=== PATIENT | male | born 1995 | race Caucasian/White ===

== ENCOUNTER 2018-08-15 23:59 | Inpatient (IN) ==
[2018-08-16] MEDS ORDERED: Lidocaine 1%/Epinephrine 1:100,000 Inj 20 ML Vial INFILTRATN ONE (01:54)
[2018-08-16] MEDS ORDERED: Vancomycin Inj 1,500 MG in Sodium Chlor 0.9% Inj 500 ML IV.SIG ONE (01:54)
[2018-08-16] MEDS ORDERED: Bupivacaine PF 0.5% Inj 10 ML Vial INFILTRATN ONE (01:54)
[2018-08-16] MEDS ORDERED: Morphine Inj 4 MG, Morphine Inj 2 MG IV.PUSH ONE ×2 (01:58)
[2018-08-16] MEDS ORDERED: Bupivacaine 0.5% Inj 50 ML MDV Vial INFILTRATN ONE (02:15)
--- NOTE | 2018-08-16 02:22 | ED ---
HPI General Chief Complaint: Extremity Injury, Upper Stated Complaint: Skin Time Seen by Provider: 08/16/18 01:42 Source: patient Mode of arrival: ambulatory Limitations: no limitations History of Present Illness HPI narrative: 23-year-old right-hand dominant white male presents emergency department for evaluation of right hand pain and swelling after having his hand closed in a car door 2 days ago. He states that his hand was accidentally closed in a van door. He states that he had only mild discomfort initially. He did sustain a laceration. Over the last 24 hours his hand has become increasingly painful, red, swollen and now has started draining pus through the wound. He states that he had been able to move his finger but has not been able to move his finger fully due to pain. The injury occurred over the right middle finger. He denies any numbness or tingling. He states he does feel weak due to pain. He has not had a tetanus shot over 5 years. Pain is severe. He denies any fever chills. Worse with movement and palpation. Some relief with elevation. MD complaint: injury to: right Onset (ago): day(s) (2) Related Data Home Medications Medication Instructions Recorded Confirmed No Known Home Medications 08/16/18 08/16/18 Allergies Allergy/AdvReac Type Severity Reaction Status Date / Time penicillin G Allergy Severe Hives Verified 08/16/18 00:03 Review of Systems ROS: all other systems reviewed are negative PMFSH Medical History Medical History Patient denies medical problems (Acute) Surgical History Surgical History History of ear surgery (Acute) Hx of appendectomy (Acute) Social History Social History Substance History: No History of Abuse Second Hand Smoke Exposure: Yes Smoking Status: Current every day smoker Tobacco Type: Cigarettes How Often Do You Have a Drink Containing Alcohol: Monthly or less Recent Travel in [facility] within the Last 8 Weeks: No Recent Out of Country Travel within the Last 8 Weeks: No Immunization History Tetanus Immunization: <5 Years Hx Influenza Vaccine This Season: No Exam Narrative Exam Narrative: GENERAL: Well-developed, well-nourished in no apparent distress. Nontoxic appearing. HEAD: Normocephalic, atraumatic. EYES: Pupils equal round and reactive. Extraocular motions intact. No scleral icterus. No injection or drainage. ENT: Nose clear. Throat without erythema, tonsillar hypertrophy or exudate. Uvula midline. Airway patent. NECK: Trachea midline. Supple, nontender, moves head freely. No central bony tenderness or spasm. CARDIOVASCULAR: Regular rate and rhythm without murmurs, gallops, or rubs. RESPIRATORY: Clear to auscultation. Breath sounds equal bilaterally. No wheezes , rales, or rhonchi. GASTROINTESTINAL: Abdomen soft, non-tender, nondistended. No hepato-splenomegaly , or palpable masses. No guarding. EXTREMITIES: No clubbing, cyanosis. Examination of the right hand reveals a 1/ 2 cm laceration to the proximal dorsal middle finger. This is approximately 1 cm away from the MCP joint. Patient has very limited range of motion at the MCP joint due to pain. There is williams pus coming from the wound. This is been cleansed and cultured. Patient has exquisite pain to the surrounding for hand up into the finger. He has intact cap refill distally. The thumb, index, ring and little finger are unremarkable. BACK: Nontender without deformity. No flank tenderness. NEUROLOGICAL: Awake, alert and oriented x 3 .Cranial nerves grossly intact. Motor and sensory grossly within normal limits. Normal speech. Course Initial Documented Vital Signs Temperature 98.6 F 08/16/18 00:01 Pulse Rate 70 08/16/18 00:01 Respiratory Rate 18 08/16/18 00:01 Blood Pressure 102/56 L 08/16/18 00:01 Pulse Oximetry 98 08/16/18 00:01 Last Documented Vital Signs Temperature 98.6 F 08/16/18 00:01 Pulse Rate 98 H 08/16/18 02:01 Respiratory Rate 22 08/16/18 02:01 Blood Pressure 142/95 H 08/16/18 02:01 Pulse Oximetry 100 08/16/18 02:01 Medical Decision Making [facility] Narrative Medical decision making narrative: IV access is obtained. Patient was given 6 mg of morphine IV, Zofran 4 mg IV. Patient will be given 1.5 g of vancomycin IV. Wound culture has been collected and sent to the lab. Routine laboratory testings including CBC, chemistry. X-ray of the hand. Patient will also be given clindamycin 900 mg IV. I have discussed the case with Dr. Whitmore the hand surgeon engine emission technician who is agreed to see the patient. He will see the patient here in the ER. The patient has been evaluated by the hand surgeon who is going to take the patient directly to the operating room to irrigate the wound. The patient will be admitted to the [facility] service. I spoke with Dr. Lewis who is accepted the admission. Medical Screen Exam Complete: Yes Emergency Medical Condition: Yes Lab Data Result diagrams: 08/16/18 02:11 08/16/18 02:11 Lab Results 08/16/18 08/16/18 Range/Units 02:11 02:11 WBC 16.5 H (4.0-11.0) th/mm3 RBC 4.45 L (4.50-5.90) mil/mm3 Hgb 14.5 (13.0-17.0) gm/dL Hct 43.0 (39.0-51.0) % MCV 96.5 (80.0-100.0) fL MCH 32.6 (27.0-34.0) pg MCHC 33.8 (32.0-36.0) % RDW 12.9 (11.6-17.2) % Plt Count 260 (150-450) th/mm3 MPV 8.4 (7.0-11.0) fL Neut % (Auto) 75.2 H (16.0-70.0) % Lymph % (Auto) 13.2 (9.0-44.0) % [place] % (Auto) 9.3 H (0.0-8.0) % Eos % (Auto) 1.8 (0.0-4.0) % Baso % (Auto) 0.5 (0.0-2.0) % Neut # (Auto) 12.4 H (1.8-7.7) th/mm3 Lymph # (Auto) 2.2 (1.0-4.8) th/mm3 [place] # (Auto) 1.5 H (0.0-0.9) th/mm3 Eos # (Auto) 0.3 (0.0-0.4) th/mm3 Baso # (Auto) 0.1 (0.0-0.2) th/mm3 WBC Differential . Differential Comment Auto diff final Sodium 141 (136-145) meq/L Potassium 3.6 (3.5-5.1) meq/L Chloride 105 (98-107) meq/L Carbon Dioxide 29.4 (21.0-32.0) meq/L Anion Gap 7 (5-15) meq/L BUN 15 (7-18) mg/dL Creatinine 0.75 (0.60-1.30) mg/dL Estimated GFR Greater than 89 (>89) mL/min Random Glucose 106 (74-106) mg/dL Calcium 8.5 (8.5-10.1) mg/dL Discharge Plan Discharge Disposition Patient Disposition: 30 Still Patient Discharge Condition Condition: Stable Physicians Team ED Provider: Patti Diallo ED Midlevel Provider: Monster Clifton Primary Care Provider: Primary Care Daphney Guthrie Rxs /Orders / Referrals /Forms Prescriptions: No Action No Known Home Medications RF: 0 Status ED Status: With Doctor
[2018-08-16 02:33] LABS: Baso # (Auto) 0.1 th/mm3 (0.0-0.2); Baso % (Auto) 0.5 % (0.0-2.0); Eos # (Auto) 0.3 th/mm3 (0.0-0.4); Eos % (Auto) 1.8 % (0.0-4.0); Hemoglobin 14.5 gm/dL (13.0-17.0); Lymph # (Auto) 2.2 th/mm3 (1.0-4.8); Lymph % (Auto) 13.2 % (9.0-44.0); Mean Corpuscular HGB Conc 33.8 % (32.0-36.0); Mean Corpuscular Hemoglobin 32.6 pg (27.0-34.0); Mean Corpuscular Volume 96.5 fL (80.0-100.0); Mean Platelet Volume 8.4 fL (7.0-11.0); Mono # (Auto) 1.5 th/mm3 (0.0-0.9); Mono % (Auto) 9.3 % (0.0-8.0); Neut # (Auto) 12.4 th/mm3 (1.8-7.7); Neut % (Auto) 75.2 % (16.0-70.0); Platelet Count 260 th/mm3 (150-450); Red Blood Count 4.45 mil/mm3 (4.50-5.90); Red Cell Distribution Width 12.9 % (11.6-17.2); White Blood Count 16.5 th/mm3 (4.0-11.0)
[2018-08-16] MEDS ORDERED: Clindamycin/Dextrose 900 MG/50 ML IVPB IV.SIG STA (02:35)
[2018-08-16] MEDS ORDERED: Lidocaine PF 2% Inj 10 ML Ampul ONE (02:45)
[2018-08-16] MEDS ORDERED: Bupivacaine PF 0.5% Inj 30 ML Vial ONE (02:48)
[2018-08-16 02:51] LABS: Anion Gap 7 meq/L (5-15); Blood Urea Nitrogen 15 mg/dL (7-18); Calcium 8.5 mg/dL (8.5-10.1); Carbon Dioxide 29.4 meq/L (21.0-32.0); Chloride 105 meq/L (98-107); Glomerular Filtration Rate Greater Than 89 mL/min (>89); Glucose,Random 106 mg/dL (74-106); Potassium 3.6 meq/L (3.5-5.1); Sodium 141 meq/L (136-145)
[2018-08-16] MEDS ORDERED: Clindamycin 900 mg/NS Premix 900 MG/50 ML PIGGYBACK IV.SIG ONE (03:00)
[2018-08-16] MEDS ORDERED: Lidocaine PF 1% Inj 5 ML Syringe OTHER ONE (03:05)
--- NOTE | 2018-08-16 03:14 | MB ---
cc: Fredo Griffiths MD DATE: 08/16/2018 REASON FOR CONSULTATION: Right middle finger laceration with infection. HISTORY OF PRESENT ILLNESS: The patient is a 23-year-old right-hand dominant male who presented to the ED with complaints of laceration to the right middle finger. The patient states his middle finger got injured by a closed car door 2 days ago. The patient noticed swelling, redness, which has been worsening. The patient also complains of throbbing pain in dependent position of the hand. He also complains of tingling in the dependent position of the hand. Denies any fever. The patient has worsening pain with range of motion of the finger. The patient also complains of limited range of motion of the right middle finger. PHYSICAL EXAMINATION: The patient is alert, oriented x3. Examination of right hand reveals a transverse laceration over the dorsal aspect of the middle finger proximal phalanx region distal to the DIP joint measuring about 2 cm. Swelling noted over the dorsal aspect of the hand and the fingers. Surrounding erythema noted. Drainage of purulent material noted from the region. Mild drooping of the middle finger noted of the MP and the PIP joints. The patient has limited range of motion. Range of motion of the middle finger is associated with pain. He is unable to make a fist. He has intact sensation distally. He has intact distal capillary refill. X-rays of the right hand shows no evidence of bony injury. ASSESSMENT: A 23-year-old male with open laceration of the right middle finger with questionable involvement of the extensor tendon with infection and cellulitis. PLAN: I agreed to take the patient emergently for exploration, wash, incision and drainage and possible repair of the extensor tendon of right middle finger. The patient has been explained the risks and benefits of the procedure. He has been consented for the same. He will be admitted for IV antibiotics. Fredo Griffiths MD SE/kunal , 02:48 AM , 02:55 AM CHIQUI
[2018-08-16] MEDS ORDERED: Ketorolac Inj 30 MG/ML (IVP) Vial IV.PUSH ONE (04:00)
[2018-08-16] MEDS ORDERED: Neostigmine Inj 5 MG/5 ML Syringe IV.PUSH ONE (04:00)
[2018-08-16] MEDS ORDERED: Glycopyrrolate Inj 1 MG/5 ML Syringe IV.PUSH ONE (04:00)
[2018-08-16] MEDS ORDERED: Vancomycin Consult Pharmacy OTHER PRN (04:18)
--- NOTE | 2018-08-16 04:18 | P.OP ---
- Preoperative Diagnosis (1) Laceration of right middle finger with tendon involvement (2) Superficial injury of right middle finger with infection - Postoperative Diagnosis (1) Septic arthritis of hand, left Comment: septic arthritis metacarpophalangeal joint right middle finger (2) Laceration of right middle finger with tendon involvement Comment: partial laceration extensor digitorum comminus tendon right middle finger Date of procedure: 08/16/18 Procedure: exploration, Incision and drainage, debridement of the extensor tendon, arthrotomy Metacarpophalangeal joint right middle finger Anesthesia: GETA Surgeon: Fredo Griffiths MD Estimated blood loss (mL): 5 Tourniquet time (min): 42 Pathology: other (swab from subcutaneous location and MP joint right middle finger)
[2018-08-16] MEDS ORDERED: Morphine Inj 4 MG/ML Vial IV.PUSH PRN (04:19)
[2018-08-16] MEDS ORDERED: Acetaminophen 325 MG Tablet PO PRN (04:19)
[2018-08-16] MEDS ORDERED: Bisacodyl 10 MG Supp RECTAL PRN (04:19)
[2018-08-16] MEDS ORDERED: *Meperidine Inj 25 MG/ML Vial PERIprocedural Use ONLY ONE (04:22)
[2018-08-16] MEDS ORDERED: fentaNYL Citrate Inj 100 MCG/2 ML Ampul ONE (04:29)
--- NOTE | 2018-08-16 05:09 | MP ---
cc: Fredo Griffiths MD DATE OF OPERATION: 08/16/2018 PREOPERATIVE DIAGNOSIS: Laceration with infection and extensor tendon involvement, right middle finger dorsum. POSTOPERATIVE DIAGNOSIS: Laceration with partial laceration of the extensor digitorum communis tendon, right middle finger with septic arthritis, right middle finger metacarpophalangeal joint. PROCEDURE: Exploration, incision, drainage and debridement, extensor digitorum communis tendon and arthrotomy metacarpophalangeal joint, right middle finger. SURGEON: Fredo Griffiths MD ANESTHESIA: General. ESTIMATED BLOOD LOSS: 5 mL. TOURNIQUET TIME: 42 minutes at 250 mmHg. SPECIMENS: Sent for culture and sensitivity. The first one was from subcutaneous location. Second one was from MP joint, right middle finger. CONDITION: To PACU stable. INDICATIONS: The patient is a 23-year-old male who presented with complaints of laceration to the right middle finger about 2 days ago when he slammed against a car door. The patient noticed worsening pain, swelling, redness, and drainage from the region and presented to the ED with inability to move the right middle finger. On examination, he had a laceration over the dorsal aspect of the middle finger proximal phalanx region just distal to the MP joint region with purulent drainage from the region with exposed tendon. He had tenderness over the MP joint of the middle finger. Range of motion of the middle finger was limited and painful. He had x-rays done, which was negative for fracture. The patient had lab work done. He had a white count of 16.5 and shift of 75%. The patient was consented for exploration, incision, drainage, possible extensor tendon repair, right middle finger. The patient was explained the risks and benefits of the procedure. PROCEDURE IN DETAIL: The patient was brought to the operating room under general anesthesia. The right upper extremity was sterilely prepped and draped. The laceration site was explored and there was evidence of purulent material from the region. Hence, decision was made to extend the laceration both proximally and distally. Incision sites were marked in a longitudinal fashion. After limb elevation, tourniquet was inflated to 250 mmHg. Incision was then made over the proposed incision site. Skin flaps were elevated. There was extensive inflammatory tissue in the subcutaneous location. On further exploration, there was evidence of partial laceration of the extensor tendon over the dorsal radial aspect of the middle finger distal to the MP joint. There was evidence of purulent material draining from underneath the extensor tendon. This purulence increased on pressure over the MP joint, hence intraoperatively, decision was made to proceed with arthrotomy of the metacarpophalangeal joint. Longitudinal arthrotomy was then carried out along the radial aspect of the MP joint. On exploration, there was evidence of purulent material within the MP joint of the right middle finger and this was connecting to the laceration underneath the extensor tendon distally. Excisional debridement of devitalized extensor tendon and inflammatory and infected tissues were carried out. Thorough wash was given using normal saline and hydrogen peroxide. This was then followed by normal saline mixed with G.U. irrigant. About 2 liters of solution was used to clean the MP joint and the surrounding infected areas. Packing of the MP joint was carried out with 1/4-inch iodoform packing material. The subcutaneous location was also packed with 1/4-inch iodoform packing material. Bleeding points were cauterized with bipolar cautery. Skin flaps were then approximated using 5-0 nylon in a horizontal mattress interrupted fashion loosely. Bulky hand dressing was applied, which was held in place by a standard wrap. Tourniquet was deflated at 42 minutes. He had good distal circulation after release of the tourniquet. The patient was recovered and sent to recovery in stable condition. We will keep the limb elevated, continue with IV antibiotics. We will obtain infectious disease consult in the hand. Fredo Griffiths MD SE/kunal , 04:23 AM , 04:34 AM
[2018-08-16] MEDS ORDERED: *morphine SULFATE 4 MG/ML PERIprocedure ONLY ONE (05:11)
--- NOTE | 2018-08-16 05:47 | XR ---
EXAM DATE: 08/16/2018 2:39 AM EDT AGE/SEX: 23 years / Male INDICATIONS: Right hand injury. Slammed in car door. Pain at 3rd digit. CLINICAL DATA: This is the patient's initial encounter. Patient reports that signs and symptoms have been present for 3 days and indicates a pain score of 9/10. MEDICAL/SURGICAL HISTORY: None. None. COMPARISON: No prior exams available for comparison. FINDINGS: The lateral view is underpenetrated. There does appear to be some dorsal soft tissue swelling. The un derlying bony elements are grossly intact without definite evidence of fracture or dislocation. No ra diodense foreign body is appreciated. CONCLUSION: No acute bony findings Electronically signed by: Maurice Lester MD 08/16/2018 5:45 AM EDT
[2018-08-16] MEDS: Senna/Docusate Sodium 8.6/50 MG Tablet PO SCH ×2 (08:53→20:18)
--- NOTE | 2018-08-16 09:51 | P.HPIM ---
History of Present Illness Service: [facility] Primary Care Physician: No Primary Care Physician Chief Complaint: RIGHT HAND INJURY History of Present Illness: Patient is a 23-year-old male who presented to the emergency department for evaluation of right hand pain and swelling after having his hand closed in a car door 2 days prior. Patient states that his hand was accidentally closed in a van door. He states that he had only mild discomfort initially. He did sustain a laceration. Has continued to worsen over last 24- 48 hours and become increasingly painful, red, swollen and has had now started draining pus through the wound. He states that he is been able to move his finger but not been able to move his feet fully now due to pain. Injury occurred over the right middle finger. He denies any numbness or tingling. Has some weakness due to pain. Had a tetanus shot over 5 years ago pain was severe. Denies any fever chills. It is worse with movement and palpable patient some relief with elevation. Patient is right hand dominant Patient underwent exploration and incision and drainage and debridement of the extensor tendon arthrotomy and metacarpal phalangeal joint of the right middle finger by Dr. DAWN We have been asked to admit. Family history is significant for hypertension in his father Inpatient Certification: I certify that the inpatient services were ordered in accordance with Medicare regulations governing the order. This includes certification that hospital inpatient services are reasonable and necessary and in the case of services not specified as inpatient-only under 42 CFR 419.22(n), that they are appropriately provided as inpatient services in accordance to with the 2-midnight benchmark under 43 CFR 412.3(e) Estimated Total Length of Stay (Days): 3 Plans for Post Hospital Care: Not yet determined Review of Systems All other systems reviewed negative except as stated in HPI [facility] - History History Provided By: Patient - Medical History Medical History: Medical History (Last Reviewed 08/16/18 @ 09:09 by Malgorzata Almendarez) Patient denies medical problems - Surgical History Surgical History: Surgical History (Last Reviewed 08/16/18 @ 09:09 by Malgorzata Almendarez) History of ear surgery Hx of appendectomy - Family History Family History: Family History (Last Updated 08/16/18 @ 09:46 by Damion Hartmann DO) Other Family history of hypertension - Social History I have reviewed the patient's Social History: Yes - Tobacco History Second Hand Smoke Exposure: Yes Tobacco Use In Past 30 Days: Yes Smoking Status: Current every day smoker Tobacco Type: Cigarettes - Alcohol History How Often Do You Have a Drink Containing Alcohol: 2 to 4 times a month - Substance Use History Substance History: No History of Abuse - Travel History History of Recent Travel: No Recent Travel in the [place] Within the Last 8 Weeks: No Recent Travel Out of the Country Within the Last 8 Weeks: No - Immunization History Tetanus Immunization: <5 Years Hx Influenza Vaccine This Season: No Medications and Allergies Active Medications: Active Medications Acetaminophen (Tylenol) 650 mg PO Q4H PRN PRN Reason: Temp > 100.4 Al Hydroxide/Mg Hydroxide (Milk Of Magnesia Liq) 30 ml PO Q12H PRN PRN Reason: Mild Constipation Bisacodyl (Dulcolax Supp) 10 mg RECTAL DAILY PRN PRN Reason: SEVERE CONSITIPATION Clindamycin/Sodium Chloride (Cleocin 900 Mg/Ns Premix) 900 mg in 50 mls @ 100 mls/hr IV.SIG Q8H BECCA Lactulose (Lactulose Liq) 30 ml PO DAILY PRN PRN Reason: SEVERE CONSITIPATION Miscellaneous Information ([facility] Nursing Information) 1 each OTHER UNSCH PRN PRN Reason: SEE LABEL COMMENTS Stop: 08/17/18 04:29 Morphine Sulfate (Morphine Inj) 4 mg IV.PUSH Q4H PRN PRN Reason: pain 6-10 Ondansetron HCl (Zofran Inj) 4 mg IV.PUSH Q6H PRN PRN Reason: NAUSEA OR VOMITING Pharmacy Profile Note (Vancomycin Consult Pharmacy) 1 each OTHER UNSCH PRN PRN Reason: Pharmacy to dose Senna/Docusate Sodium (Karmen-Colace) 1 tab PO BID BECCA Last Admin: 08/16/18 08:53 Dose: Not Given Sennosides (Senokot) 17.2 mg PO Q12H PRN PRN Reason: Moderate Constipation Allergies Allergy/AdvReac Type Severity Reaction Status Date / Time penicillin G Allergy Severe Hives Verified 08/16/18 00:03 Home Medications Medication Instructions Recorded Confirmed Type No Known Home Medications 08/16/18 08/16/18 History Exam Vital signs: Vital Signs 08/16/18 00:01 08/16/18 02:01 08/16/18 04:21 Temperature 98.6 F 98.5 F Pulse Rate 70 98 H 101 H Respiratory Rate 18 22 24 Blood Pressure 102/56 L 142/95 H 145/85 H Pulse Oximetry 98 100 99 08/16/18 04:30 08/16/18 04:45 08/16/18 05:00 Temperature Pulse Rate 74 69 70 Respiratory Rate 15 20 22 Blood Pressure 140/88 131/80 126/72 Pulse Oximetry 99 99 99 08/16/18 05:15 08/16/18 05:30 08/16/18 06:00 Temperature 98.6 F 98.2 F Pulse Rate 96 H 102 H 92 H Respiratory Rate 23 20 16 Blood Pressure 124/67 125/61 131/68 Pulse Oximetry 94 L 94 L 96 08/16/18 08:46 Temperature 97.9 F Pulse Rate 71 Respiratory Rate 17 Blood Pressure 109/65 Pulse Oximetry 97 Intake & Output 08/15/18 08/16/18 08/16/18 18:59 06:59 18:59 Intake Total 1465 / 1465 Output Total / Balance 1460 / 1460 Weight 81 kg Intake: IV 565 / 565 Cleocin 900 mg/NS Premix 900 mg 50 / 50 In 50 ml @ 100 mls/hr IV.SIG ONCE ONE Rx#:[id number] Vancomycin Inj 1,500 MG In NS 515 / 515 Inj 500 ML @ 250 mls/hr IV.SIG ONCE ONE Rx#:[id number] Anesthesia Amount 900 / 900 Output: Estimated Blood Loss 5 / 5 Narrative: GENERAL: Awake alert and oriented 3 talkative and cooperative SKIN: Warm and dry. Right hand is dressed and elevated HEAD: Atraumatic. Normocephalic. EYES: Pupils equal and round. No scleral icterus. No injection or drainage. ENT: No nasal bleeding or discharge. Mucous membranes pink and moist. NECK: Trachea midline. No JVD. CARDIOVASCULAR: Regular rate and rhythm. S1-S2 no S3 or S4 RESPIRATORY: No accessory muscle use. Clear to auscultation. Breath sounds equal bilaterally. GASTROINTESTINAL: Abdomen soft, non-tender, nondistended. Hepatic and splenic margins not palpable. MUSCULOSKELETAL: Extremities without clubbing, cyanosis, or edema. No obvious deformities. Right hand is dressed and elevated NEUROLOGICAL: Awake and alert. No obvious cranial nerve deficits. Motor grossly within normal limits. Five out of 5 muscle strength in the arms and legs. Normal speech. Right hand is dressed and elevated PSYCHIATRIC: Appropriate mood and affect; insight and judgment normal. Results - Labs CBC & Chem 7: 08/16/18 02:11 08/16/18 02:11 Labs: Short CBC 08/16/18 Range/Units 02:11 WBC 16.5 H (4.0-11.0) th/mm3 Hgb 14.5 (13.0-17.0) gm/dL Hct 43.0 (39.0-51.0) % Plt Count 260 (150-450) th/mm3 BMP 08/16/18 02:11 Sodium 141 Potassium 3.6 Chloride 105 Carbon Dioxide 29.4 BUN 15 Creatinine 0.75 Calcium 8.5 - Imaging Impressions Hand X-Ray 08/16/18 01:59 CONCLUSION: No acute bony findings Caprini VTE Risk Assessment Caprini VTE Risk Assessment: No/Low Risk (score <= 1) Caprini Risk Assessment Model: Point Value = 1 Point Value = 2 Point Value = 3 Point Value = 5 Age 41-60 Minor surgery BMI > 25 kg/m2 Swollen legs Varicose veins or History of unexplained or recurrent spontaneous Oral contraceptives or hormone replacement Sepsis (< 1 month) Serious lung disease, including pneumonia (< 1 month) Abnormal pulmonary function Acute myocardial infarction Congestive heart failure (< 1 month) History of inflammatory bowel disease Medical patient at bed rest Age 61-74 Arthroscopic surgery Major open surgery (> 45 min) Laparoscopic surgery (> 45 min) Malignancy Confined to bed (> 72 hours) Immobilizing plaster cast Central venous access Age >= 75 History of VTE Family history of VTE Factor V Leiden Prothrombin [id number] Lupus anticoagulant Anticardiolipin antibodies Elevated serum homocysteine Heparin-induced thrombocytopenia Other congenital or acquired thrombophilia Stroke (< 1 month) Elective arthroplasty Hip, pelvis, or leg fracture Acute spinal cord injury (< 1 month) Prophylaxis Regimen: Total Risk Factor Score Risk Level Prophylaxis Regimen 0-1 Low Early ambulation 2 Moderate Order ONE of the following: *Sequential Compression Device (SCD) *Heparin 5000 units SQ BID 3-4 Higher Order ONE of the following medications: *Heparin 5000 units SQ TID *Enoxaparin/Lovenox 40 mg SQ daily (WT < 150 kg, CrCl > 30 mL/min) *Enoxaparin/Lovenox 30 mg SQ daily (WT < 150 kg, CrCl > 10-29 mL/min) *Enoxaparin/Lovenox 30 mg SQ BID (WT < 150 kg, CrCl > 30 mL/min) AND/OR *Sequential Compression Device (SCD) 5 or more Highest Order ONE of the following medications: *Heparin 5000 units SQ TID (Preferred with Epidurals) *Enoxaparin/Lovenox 40 mg SQ daily (WT < 150 kg, CrCl > 30 mL/min) *Enoxaparin/Lovenox 30 mg SQ daily (WT < 150 kg, CrCl > 10-29 mL/min) *Enoxaparin/Lovenox 30 mg SQ BID (WT < 150 kg, CrCl > 30 mL/min) AND *Sequential Compression Device (SCD) Assessment and Plan - Plan Right middle finger laceration/infection -Status post incision and drainage and septic arthritis of metacarpophalangeal joint right middle finger and partial laceration extensor digitorum communis tendon right middle finger status post exploration and incision and drainage and debridement of the extensor tendon and arthrotomy of the metacarpal phalangeal joint right middle finger SEEN BY DR DAWN Continue pain control as needed Leukocytosis continue on clindamycin and vancomycin Check a.m. labs Tobacco abuse recommend smoking cessation Alcohol use recommend alcohol cessation Continue on DVT and GI prophylaxis Discussed with patient and RN and family Code Status: Full code Discussed Condition With: RN and patient and family Discharge Planning: Pending clearance by hand surgery H&P: Quality - VTE Deep Vein Thrombosis/Pulmonary Embolism Present on Admission: No
[2018-08-16] MEDS ORDERED: Morphine Sulfate Inj 2 MG/ML Vial IV.PUSH PRN (09:52)
[2018-08-16] MEDS ORDERED: Naloxone Inj 0.4 MG/ML Vial IV.PUSH PRN (09:52)
[2018-08-16] MEDS: Famotidine 20 MG Tablet PO SCH ×2 (11:15→20:18)
[2018-08-16] MEDS: Clindamycin 900 mg/NS Premix 900 MG/50 ML PIGGYBACK IV.SIG SCH ×2 (11:15→18:30)
[2018-08-16] MEDS: Vancomycin Inj 1,500 MG in Sodium Chlor 0.9% Inj 500 ML IV.SIG SCH (14:22)
--- NOTE | 2018-08-16 16:19 | P.PN ---
Subjective Interval history: pain is better no numbness no fever complaint with limb elevation Physical Exam Vital signs: Vital Signs 08/16/18 00:01 08/16/18 02:01 08/16/18 04:21 Temperature 98.6 F 98.5 F Pulse Rate 70 98 H 101 H Respiratory Rate 18 22 24 Blood Pressure 102/56 L 142/95 H 145/85 H Pulse Oximetry 98 100 99 08/16/18 04:30 08/16/18 04:45 08/16/18 05:00 Temperature Pulse Rate 74 69 70 Respiratory Rate 15 20 22 Blood Pressure 140/88 131/80 126/72 Pulse Oximetry 99 99 99 08/16/18 05:15 08/16/18 05:30 08/16/18 06:00 Temperature 98.6 F 98.2 F Pulse Rate 96 H 102 H 92 H Respiratory Rate 23 20 16 Blood Pressure 124/67 125/61 131/68 Pulse Oximetry 94 L 94 L 96 08/16/18 08:46 08/16/18 11:26 08/16/18 15:17 Temperature 97.9 F 98 F 98.1 F Pulse Rate 71 71 76 Respiratory Rate 17 17 16 Blood Pressure 109/65 109/62 116/67 Pulse Oximetry 97 97 98 Intake & Output 08/15/18 08/16/18 08/16/18 18:59 06:59 18:59 Intake Total 1465 / 1465 50 / 50 Output Total 5 / 5 Balance 1460 / 1460 50 / 50 Weight 81 kg Intake: IV 565 / 565 50 / 50 Cleocin 900 mg/NS Premix 900 mg 50 / 50 50 / 50 In 50 ml @ 100 mls/hr IV.SIG Q8H [facility] Rx#:[id number] Vancomycin Inj 1,500 MG In NS 515 / 515 Inj 500 ML @ 250 mls/hr IV.SIG ONCE ONE Rx#:[id number] Anesthesia Amount 900 / 900 Output: Estimated Blood Loss 5 / 5 Narrative: examination of the right upper extremity: dressing and packing in place decreased swelling and erythema able to move his fingers better, dropping of the middle finger noted intact sensation intact distal circulation Results - Labs CBC & Chem 7: 08/16/18 02:11 08/16/18 02:11 Laboratory Results - last 24 hr 08/16/18 08/16/18 02:11 02:11 WBC 16.5 H RBC 4.45 L Hgb 14.5 Hct 43.0 MCV 96.5 MCH 32.6 MCHC 33.8 RDW 12.9 Plt Count 260 MPV 8.4 Neut % (Auto) 75.2 H Lymph % (Auto) 13.2 [place] % (Auto) 9.3 H Eos % (Auto) 1.8 Baso % (Auto) 0.5 Neut # (Auto) 12.4 H Lymph # (Auto) 2.2 [place] # (Auto) 1.5 H Eos # (Auto) 0.3 Baso # (Auto) 0.1 WBC Differential . Differential Comment Auto diff final Sodium 141 Potassium 3.6 Chloride 105 Carbon Dioxide 29.4 Anion Gap 7 BUN 15 Creatinine 0.75 Estimated GFR Greater than 89 Random Glucose 106 Calcium 8.5 Microbiology 08/16/18 03:40 Wound - Finger Fungal Smear - Final No fungal elements seen 08/16/18 03:26 Wound - Finger Fungal Smear - Final No fungal elements seen 08/16/18 03:40 Wound - Finger Gram Stain - Final 08/16/18 03:26 Wound - Finger Gram Stain - Final 08/16/18 02:11 Wound - Finger Gram Stain - Final - Imaging Impressions Hand X-Ray 08/16/18 01:59 CONCLUSION: No acute bony findings Assessment and Plan - Assessment (1) Septic arthritis of hand, left Code(s): M00.9 - Pyogenic arthritis, unspecified Status: Acute - Plan surrounding skin is cleaned with alcohol wipes packing pulled couple of cms dry dressing applied continue with limb elevation and range of motion exercises continue with iv antibiotics ID consultation labs in am. hand surgery will follow.
[2018-08-16] MEDS: Heparin - SQ 10,000 UNITS/ML Vial SQ SCH (20:18)
[2018-08-17] MEDS: Vancomycin Inj 1,500 MG in Sodium Chlor 0.9% Inj 500 ML IV.SIG SCH ×2 (03:43→15:06)
[2018-08-17] MEDS: Clindamycin 900 mg/NS Premix 900 MG/50 ML PIGGYBACK IV.SIG SCH ×3 (03:43→17:37)
[2018-08-17] MEDS: oxyCODONE/Acetaminophen 10/325 Tablet PO PRN ×3 (05:50→17:35)
[2018-08-17 06:53] LABS: Anion Gap 7 meq/L (5-15); Blood Urea Nitrogen 13 mg/dL (7-18); Calcium 8.3 mg/dL (8.5-10.1); Carbon Dioxide 28.2 meq/L (21.0-32.0); Chloride 108 meq/L (98-107); Glomerular Filtration Rate Greater Than 89 mL/min (>89); Glucose,Random 87 mg/dL (74-106); Sodium 143 meq/L (136-145)
[2018-08-17 07:02] LABS: Thyroid Stimulating Hormone 0.392 uIU/mL (0.358-3.740)
[2018-08-17] MEDS: Famotidine 20 MG Tablet PO SCH (08:52)
[2018-08-17] MEDS: Heparin - SQ 10,000 UNITS/ML Vial SQ SCH (08:52)
[2018-08-17] MEDS: Senna/Docusate Sodium 8.6/50 MG Tablet PO SCH (08:59)
[2018-08-17 09:54] LABS: Baso # (Auto) 0.1 th/mm3 (0.0-0.2); Baso % (Auto) 0.5 % (0.0-2.0); Eos # (Auto) 0.1 th/mm3 (0.0-0.4); Eos % (Auto) 1.1 % (0.0-4.0); Hematocrit 37.4 % (39.0-51.0); Hemoglobin 12.6 gm/dL (13.0-17.0); Lymph # (Auto) 3.1 th/mm3 (1.0-4.8); Lymph % (Auto) 26.8 % (9.0-44.0); Mean Corpuscular HGB Conc 33.7 % (32.0-36.0); Mean Corpuscular Hemoglobin 32.6 pg (27.0-34.0); Mean Corpuscular Volume 96.9 fL (80.0-100.0); Mean Platelet Volume 8.4 fL (7.0-11.0); Mono % (Auto) 8.2 % (0.0-8.0); Neut # (Auto) 7.4 th/mm3 (1.8-7.7); Neut % (Auto) 63.4 % (16.0-70.0); Platelet Count 210 th/mm3 (150-450); Red Blood Count 3.86 mil/mm3 (4.50-5.90); Red Cell Distribution Width 12.9 % (11.6-17.2); White Blood Count 11.7 th/mm3 (4.0-11.0)
[2018-08-17 13:14] LABS: Hemoglobin A1c 5.3 % (4.3-6.0)
[2018-08-17] MEDS ORDERED: Pharmacy Ordered Lab Info OTHER ONE (13:45)
[2018-08-17 15:10] LABS: Alanine Aminotransferase 15 U/L (12-78); Anion Gap 5 meq/L (5-15); Aspartate Aminotransferase 8 U/L (15-37); Blood Urea Nitrogen 12 mg/dL (7-18); Calcium 7.9 mg/dL (8.5-10.1); Chloride 107 meq/L (98-107); Glomerular Filtration Rate Greater Than 89 mL/min (>89); Glucose,Random 111 mg/dL (74-106); Potassium 3.5 meq/L (3.5-5.1); Sodium 141 meq/L (136-145)
[2018-08-17 15:13] LABS: Alkaline Phosphatase 71 U/L (45-117); Total Protein 6.5 g/dL (6.4-8.2); Vancomycin,Trough 12.3 mcg/mL (5.0-10.0)
--- NOTE | 2018-08-17 16:04 | P.CONID ---
History of Present Illness Service: ID Consult date: 08/17/18 Requesting Physician: Damion Hartmann Reason for Consult: RIGHT HAND INFECTION Primary Care Provider: No Primary Care Physician Chief Complaint: RIGHT HAND INJURY History of Present Illness: 23 yo male w/o significant past med history slammed his R hand into car door about 1 week ago and 3 days ago developped swelling, pain, redness in the hand with swelling and redness going up his arm denies fever, chills no other symptoms s/p exploration, Incision and drainage, debridement of the extensor tendon, arthrotomy Metacarpophalangeal joint right middle finger on 08/16/[address] Alexander Growing GAS 3/3 cultures Allergic to PCN: states severe allergy, "I cant' take it" Cant recall if ever took Keflex Pt is on clindamycin and Vancomycin and his pain much improved Review of Systems All other systems reviewed negative except as stated in HPI PMFSH - History History Provided By: Patient - Medical History Medical History: Medical History (Last Reviewed 08/17/18 @ 19:30 by Brooke Pike MD) Patient denies medical problems - Surgical History Surgical History: Surgical History (Last Reviewed 08/17/18 @ 19:30 by Brooke Pike MD) History of ear surgery Hx of appendectomy - Family History Family History: Family History (Last Reviewed 08/17/18 @ 19:30 by Brooke Pike MD) Other Family history of hypertension - Social History I have reviewed the patient's Social History: Yes - Tobacco History Second Hand Smoke Exposure: Yes Tobacco Use In Past 30 Days: Yes Smoking Status: Current every day smoker Tobacco Type: Cigarettes - Alcohol History How Often Do You Have a Drink Containing Alcohol: 2 to 4 times a month - Substance Use History Substance History: No History of Abuse - Travel History History of Recent Travel: No Recent Travel in the [place] Within the Last 8 Weeks: No Recent Travel Out of the Country Within the Last 8 Weeks: No - Immunization History Tetanus Immunization: <5 Years Hx Influenza Vaccine This Season: No Medications and Allergies Active Medications: Active Medications Acetaminophen (Tylenol) 650 mg PO Q4H PRN PRN Reason: Temp > 100.4 Al Hydroxide/Mg Hydroxide (Milk Of Magnesia Liq) 30 ml PO Q12H PRN PRN Reason: Mild Constipation Bisacodyl (Dulcolax Supp) 10 mg RECTAL DAILY PRN PRN Reason: SEVERE CONSITIPATION Famotidine (Pepcid) 20 mg PO BID [facility] Last Admin: 08/17/18 08:52 Dose: 20 mg Heparin Sodium (Porcine) (Heparin Inj) 5,000 units SQ Q12HR [facility] Last Admin: 08/17/18 08:52 Dose: 5,000 units Clindamycin/Sodium Chloride (Cleocin 900 Mg/Ns Premix) 900 mg in 50 mls @ 100 mls/hr IV.SIG Q8H [facility] Last Infusion: 08/17/18 13:35 Dose: Infused Vancomycin HCl 1,500 mg/ (Sodium Chloride) 515 mls @ 250 mls/hr IV.SIG Q12H [facility] Last Admin: 08/17/18 15:06 Dose: 125 mls/hr Lactulose (Lactulose Liq) 30 ml PO DAILY PRN PRN Reason: SEVERE CONSITIPATION Morphine Sulfate (Morphine Inj) 4 mg IV.PUSH Q4H PRN PRN Reason: pain 6-10 Morphine Sulfate (Morphine Inj) 2 mg IV.PUSH Q3H PRN PRN Reason: PAIN 3-5; IF UABLE TO TAKE PO Naloxone HCl (Narcan Inj) 0.4 mg IV.PUSH UNSCH PRN PRN Reason: SEE LABEL COMMENTS Ondansetron HCl (Zofran Inj) 4 mg IV.PUSH Q6H PRN PRN Reason: NAUSEA OR VOMITING Oxycodone/Acetaminophen (Percocet 10/325 Mg) 1 tab PO Q6H PRN PRN Reason: PAIN SCALE 6 TO 10 Last Admin: 08/17/18 12:14 Dose: 1 tab Oxycodone/Acetaminophen (Percocet 5/325 Mg) 1 tab PO Q6H PRN PRN Reason: PAIN SCALE 3 TO 5 Last Admin: 08/16/18 20:17 Dose: 1 tab Pharmacy Profile Note (Vancomycin Consult Pharmacy) 1 each OTHER UNSCH PRN PRN Reason: Pharmacy to dose Senna/Docusate Sodium (Karmen-Colace) 1 tab PO BID [facility] Last Admin: 08/17/18 08:59 Dose: Not Given Sennosides (Senokot) 17.2 mg PO Q12H PRN PRN Reason: Moderate Constipation Allergies Allergy/AdvReac Type Severity Reaction Status Date / Time penicillin G Allergy Severe Hives Verified 08/16/18 00:03 Home Medications Medication Instructions Recorded Confirmed Type No Known Home Medications 08/16/18 08/16/18 History Exam Vital signs: Vital Signs 08/16/18 18:33 08/16/18 19:00 08/16/18 20:50 Temperature 99.4 F 99.3 F Pulse Rate 68 Respiratory Rate 18 18 Blood Pressure 120/68 Pulse Oximetry 98 08/16/18 22:00 08/17/18 00:25 08/17/18 08:00 Temperature 98.5 F 98.1 F 97.8 F Pulse Rate 61 56 L 58 L Respiratory Rate 17 19 17 Blood Pressure 119/63 114/63 111/66 Pulse Oximetry 98 96 99 08/17/18 12:00 08/17/18 16:00 Temperature 98.2 F 98.1 F Pulse Rate 63 54 L Respiratory Rate 18 17 Blood Pressure 114/70 108/65 Pulse Oximetry 98 99 Intake & Output 08/16/18 08/17/18 08/17/18 18:59 06:59 18:59 Intake Total 1045 / 1045 1165 / 1165 50 / 50 Output Total 600 / 600 Balance 445 / 445 1165 / 1165 50 / 50 Weight 81.2 kg Intake: IV 565 / 565 615 / 615 50 / 50 Cleocin 900 mg/NS Premix 900 mg 50 / 50 100 / 100 50 / 50 In 50 ml @ 100 mls/hr IV.SIG Q8H [facility] Rx#:[id number] Vancomycin Inj 1,500 MG In NS 515 / 515 515 / 515 Inj 500 ML @ 250 mls/hr IV.SIG Q12H [facility] Rx#:[id number] Oral 480 / 480 550 / 550 Output: Urine 600 / 600 Other: # Voids 2 - Constitutional no acute distress, average body habitus - Routine HEENT Exam Head: Present: normocephalic, atraumatic Eye: Present: EOMI, PERRL. Absent: scleral injection ENT: Present: mucous membranes moist, oropharynx clear - Routine Neck Exam Present: supple. Absent: JVD - Routine Respiratory Exam Present: CTA bilaterally. Absent: accessory muscle use, rales, rhonchi - Routine Cardiovascular Exam Present: RRR, S1, S2. Absent: murmur, gallop, rubs - Routine Abdominal Exam Present: soft, normoactive bowel sounds. Absent: tenderness, distended, organomegaly, mass - Routine Extremities Exam Absent: cyanosis, clubbing, edema Comments: R hand with dressing in place no ascending cellulitis, lymphangitis - Routine Skin Exam Present: dry, warm. Absent: cyanosis, rash - Routine Neurological Exam Present: alert, oriented X3, CN II-XII intact, moving all extremities, vision grossly intact, hearing grossly intact - Routine Psychiatric Exam Present: normal affect, normal thought process, cooperative Results - Labs CBC & Chem 7: 08/17/18 09:21 08/17/18 13:46 Labs: Laboratory Results - last 24 hr 08/17/18 08/17/18 08/17/18 05:46 09:21 09:21 WBC 11.7 H RBC 3.86 L Hgb 12.6 L Hct 37.4 L MCV 96.9 MCH 32.6 MCHC 33.7 RDW 12.9 Plt Count 210 MPV 8.4 Neut % (Auto) 63.4 Lymph % (Auto) 26.8 [place] % (Auto) 8.2 H Eos % (Auto) 1.1 Baso % (Auto) 0.5 Neut # (Auto) 7.4 Lymph # (Auto) 3.1 [place] # (Auto) 1.0 H Eos # (Auto) 0.1 Baso # (Auto) 0.1 WBC Differential . Differential Comment Auto diff final Sodium 143 Potassium 4.0 Chloride 108 H Carbon Dioxide 28.2 Anion Gap 7 BUN 13 Creatinine 0.68 Estimated GFR Greater than 89 Random Glucose 87 Hemoglobin A1c 5.3 Calcium 8.3 L Phosphorus Magnesium Total Bilirubin AST ALT Alkaline Phosphatase Total Protein Albumin TSH 0.392 Free T4 1.60 H Vancomycin Trough 08/17/18 13:46 WBC RBC Hgb Hct MCV MCH MCHC RDW Plt Count MPV Neut % (Auto) Lymph % (Auto) [place] % (Auto) Eos % (Auto) Baso % (Auto) Neut # (Auto) Lymph # (Auto) [place] # (Auto) Eos # (Auto) Baso # (Auto) WBC Differential Differential Comment Sodium 141 Potassium 3.5 Chloride 107 Carbon Dioxide 29.0 Anion Gap 5 BUN 12 Creatinine 0.70 Estimated GFR Greater than 89 Random Glucose 111 H Hemoglobin A1c Calcium 7.9 L Phosphorus 3.0 Magnesium 2.0 Total Bilirubin 0.4 AST 8 L ALT 15 Alkaline Phosphatase 71 Total Protein 6.5 Albumin 3.0 L TSH Free T4 Vancomycin Trough 12.3 H Assessment and Plan - Plan R hand abscess following trauma including tenosynovits, metacarpophalangeal joint setic arthritis of right middle finger s/p exploration, Incision and drainage, debridement of the extensor tendon, arthrotomy on 08/16/[address] Alexander PCN allergy cont vanco, clindamycin I asked microlab to chk sensitivity for clindamycin of pt's GAS isolate dw pt
--- NOTE | 2018-08-17 16:41 | P.PN ---
Subjective Interval history: Ambulating in the room without any problems. Status post surgery. Says he has throbbing pain at the surgical site. Keeps arm elevated and trying to comply with stretching exercises given by Dr. Perdomo. No fever or chills. Eating well no nausea or vomiting. Physical Exam Vital signs: Vital Signs 08/16/18 18:33 08/16/18 19:00 08/16/18 20:50 Temperature 99.4 F 99.3 F Pulse Rate 68 Respiratory Rate 18 18 Blood Pressure 120/68 Pulse Oximetry 98 08/16/18 22:00 08/17/18 00:25 08/17/18 08:00 Temperature 98.5 F 98.1 F 97.8 F Pulse Rate 61 56 L 58 L Respiratory Rate 17 19 17 Blood Pressure 119/63 114/63 111/66 Pulse Oximetry 98 96 99 08/17/18 12:00 08/17/18 16:00 Temperature 98.2 F 98.1 F Pulse Rate 63 54 L Respiratory Rate 18 17 Blood Pressure 114/70 108/65 Pulse Oximetry 98 99 Intake & Output 08/16/18 08/17/18 08/17/18 18:59 06:59 18:59 Intake Total 1045 / 1045 1165 / 1165 50 / 50 Output Total 600 / 600 Balance 445 / 445 1165 / 1165 50 / 50 Weight 81.2 kg Intake: IV 565 / 565 615 / 615 50 / 50 Cleocin 900 mg/NS Premix 900 mg 50 / 50 100 / 100 50 / 50 In 50 ml @ 100 mls/hr IV.SIG Q8H [facility] Rx#:[id number] Vancomycin Inj 1,500 MG In NS 515 / 515 515 / 515 Inj 500 ML @ 250 mls/hr IV.SIG Q12H [facility] Rx#:[id number] Oral 480 / 480 550 / 550 Output: Urine 600 / 600 Other: # Voids 2 Narrative: GENERAL: Awake alert and oriented 3 talkative and cooperative SKIN: Warm and dry. Right hand is dressed and elevated CARDIOVASCULAR: Regular rate and rhythm. S1-S2 no S3 or S4 RESPIRATORY: No accessory muscle use. Clear to auscultation. Breath sounds equal bilaterally. GASTROINTESTINAL: Abdomen soft, non-tender, nondistended. Hepatic and splenic margins not palpable. MUSCULOSKELETAL: Extremities without clubbing, cyanosis, or edema. No obvious deformities. Right hand is dressed and elevated NEUROLOGICAL: Awake and alert. No obvious cranial nerve deficits. Motor grossly within normal limits. Five out of 5 muscle strength in the arms and legs. Normal speech. Right hand is dressed and elevated PSYCHIATRIC: Appropriate mood and affect; insight and judgment normal. Results - Labs CBC & Chem 7: 08/17/18 09:21 08/17/18 13:46 Laboratory Results - last 24 hr 08/17/18 08/17/18 08/17/18 05:46 09:21 09:21 WBC 11.7 H RBC 3.86 L Hgb 12.6 L Hct 37.4 L MCV 96.9 MCH 32.6 MCHC 33.7 RDW 12.9 Plt Count 210 MPV 8.4 Neut % (Auto) 63.4 Lymph % (Auto) 26.8 [place] % (Auto) 8.2 H Eos % (Auto) 1.1 Baso % (Auto) 0.5 Neut # (Auto) 7.4 Lymph # (Auto) 3.1 [place] # (Auto) 1.0 H Eos # (Auto) 0.1 Baso # (Auto) 0.1 WBC Differential . Differential Comment Auto diff final Sodium 143 Potassium 4.0 Chloride 108 H Carbon Dioxide 28.2 Anion Gap 7 BUN 13 Creatinine 0.68 Estimated GFR Greater than 89 Random Glucose 87 Hemoglobin A1c 5.3 Calcium 8.3 L Phosphorus Magnesium Total Bilirubin AST ALT Alkaline Phosphatase Total Protein Albumin TSH 0.392 Free T4 1.60 H Vancomycin Trough 08/17/18 13:46 WBC RBC Hgb Hct MCV MCH MCHC RDW Plt Count MPV Neut % (Auto) Lymph % (Auto) [place] % (Auto) Eos % (Auto) Baso % (Auto) Neut # (Auto) Lymph # (Auto) [place] # (Auto) Eos # (Auto) Baso # (Auto) WBC Differential Differential Comment Sodium 141 Potassium 3.5 Chloride 107 Carbon Dioxide 29.0 Anion Gap 5 BUN 12 Creatinine 0.70 Estimated GFR Greater than 89 Random Glucose 111 H Hemoglobin A1c Calcium 7.9 L Phosphorus 3.0 Magnesium 2.0 Total Bilirubin 0.4 AST 8 L ALT 15 Alkaline Phosphatase 71 Total Protein 6.5 Albumin 3.0 L TSH Free T4 Vancomycin Trough 12.3 H Microbiology 08/16/18 02:11 Wound - Finger Gram Stain - Final 08/16/18 02:11 Wound - Finger Wound Culture - Preliminary Group A beta Strep 08/16/18 03:40 Wound - Finger Acid Fast Bacilli Smear - Final No acid fast bacilli seen 08/16/18 03:26 Wound - Finger Acid Fast Bacilli Smear - Final No acid fast bacilli seen 08/16/18 03:40 Wound - Finger Gram Stain - Final 08/16/18 03:40 Wound - Finger Wound Culture - Preliminary Group A beta Strep 08/16/18 03:26 Wound - Finger Gram Stain - Final 08/16/18 03:26 Wound - Finger Wound Culture - Preliminary Group A beta Strep 08/16/18 02:15 Blood - Peripheral Aerobic Blood Culture - Preliminary No growth in 1 day 08/16/18 02:15 Blood - Peripheral Anaerobic Blood Culture - Preliminary No growth in 1 day 08/16/18 02:00 Blood - Peripheral Aerobic Blood Culture - Preliminary No growth in 1 day 08/16/18 02:00 Blood - Peripheral Anaerobic Blood Culture - Preliminary No growth in 1 day - Procedures s/p exploration, Incision and drainage, debridement of the extensor tendon, arthrotomy Metacarpophalangeal joint right middle finger on 08/16/[address] Alexander Assessment and Plan - Plan Right middle finger laceration/infection -Status post incision and drainage and septic arthritis of metacarpophalangeal joint right middle finger and partial laceration extensor digitorum communis tendon right middle finger status post exploration and incision and drainage and debridement of the extensor tendon and arthrotomy of the metacarpal phalangeal joint right middle finger SEEN BY DR DAWN Continue pain control as needed - s/p exploration, Incision and drainage, debridement of the extensor tendon, arthrotomy Metacarpophalangeal joint right middle finger on 08/16/[address] Alexander Leukocytosis continue on clindamycin and vancomycin Check a.m. labs Tobacco abuse recommend smoking cessation Alcohol use recommend alcohol cessation Continue on DVT and GI prophylaxis Discussed with patient and RN and family Code Status: Full code Discussed Condition With: RN and patient and family Discharge Planning: Pending clearance by hand surgery and ID
--- NOTE | 2018-08-17 17:46 | P.PN ---
Subjective Interval history: complains of mild pain no fever no numbness complaint with limb elevation Physical Exam Vital signs: Vital Signs 08/16/18 18:33 08/16/18 19:00 08/16/18 20:50 Temperature 99.4 F 99.3 F Pulse Rate 68 Respiratory Rate 18 18 Blood Pressure 120/68 Pulse Oximetry 98 08/16/18 22:00 08/17/18 00:25 08/17/18 08:00 Temperature 98.5 F 98.1 F 97.8 F Pulse Rate 61 56 L 58 L Respiratory Rate 17 19 17 Blood Pressure 119/63 114/63 111/66 Pulse Oximetry 98 96 99 08/17/18 12:00 08/17/18 16:00 Temperature 98.2 F 98.1 F Pulse Rate 63 54 L Respiratory Rate 18 17 Blood Pressure 114/70 108/65 Pulse Oximetry 98 99 Intake & Output 08/16/18 08/17/18 08/17/18 18:59 06:59 18:59 Intake Total 1045 / 1045 1165 / 1165 50 / 50 Output Total 600 / 600 Balance 445 / 445 1165 / 1165 50 / 50 Weight 81.2 kg Intake: IV 565 / 565 615 / 615 50 / 50 Cleocin 900 mg/NS Premix 900 mg 50 / 50 100 / 100 50 / 50 In 50 ml @ 100 mls/hr IV.SIG Q8H [facility] Rx#:[id number] Vancomycin Inj 1,500 MG In NS 515 / 515 515 / 515 Inj 500 ML @ 250 mls/hr IV.SIG Q12H [facility] Rx#:[id number] Oral 480 / 480 550 / 550 Output: Urine 600 / 600 Other: # Voids 2 Narrative: examination of the right hand: intact dressing and packing decreased swelling and redness packing pulled out couple of cms, minimal drainage noted range of motion of the middle finger is limited and painful wbc down to 11.7 cultures: group b strep Results - Labs CBC & Chem 7: 08/17/18 09:21 08/17/18 13:46 Laboratory Results - last 24 hr 08/17/18 08/17/18 08/17/18 05:46 09:21 09:21 WBC 11.7 H RBC 3.86 L Hgb 12.6 L Hct 37.4 L MCV 96.9 MCH 32.6 MCHC 33.7 RDW 12.9 Plt Count 210 MPV 8.4 Neut % (Auto) 63.4 Lymph % (Auto) 26.8 [place] % (Auto) 8.2 H Eos % (Auto) 1.1 Baso % (Auto) 0.5 Neut # (Auto) 7.4 Lymph # (Auto) 3.1 [place] # (Auto) 1.0 H Eos # (Auto) 0.1 Baso # (Auto) 0.1 WBC Differential . Differential Comment Auto diff final Sodium 143 Potassium 4.0 Chloride 108 H Carbon Dioxide 28.2 Anion Gap 7 BUN 13 Creatinine 0.68 Estimated GFR Greater than 89 Random Glucose 87 Hemoglobin A1c 5.3 Calcium 8.3 L Phosphorus Magnesium Total Bilirubin AST ALT Alkaline Phosphatase Total Protein Albumin TSH 0.392 Free T4 1.60 H Vancomycin Trough 08/17/18 13:46 WBC RBC Hgb Hct MCV MCH MCHC RDW Plt Count MPV Neut % (Auto) Lymph % (Auto) [place] % (Auto) Eos % (Auto) Baso % (Auto) Neut # (Auto) Lymph # (Auto) [place] # (Auto) Eos # (Auto) Baso # (Auto) WBC Differential Differential Comment Sodium 141 Potassium 3.5 Chloride 107 Carbon Dioxide 29.0 Anion Gap 5 BUN 12 Creatinine 0.70 Estimated GFR Greater than 89 Random Glucose 111 H Hemoglobin A1c Calcium 7.9 L Phosphorus 3.0 Magnesium 2.0 Total Bilirubin 0.4 AST 8 L ALT 15 Alkaline Phosphatase 71 Total Protein 6.5 Albumin 3.0 L TSH Free T4 Vancomycin Trough 12.3 H Microbiology 08/16/18 02:11 Wound - Finger Gram Stain - Final 08/16/18 02:11 Wound - Finger Wound Culture - Preliminary Group A beta Strep 08/16/18 03:40 Wound - Finger Acid Fast Bacilli Smear - Final No acid fast bacilli seen 08/16/18 03:26 Wound - Finger Acid Fast Bacilli Smear - Final No acid fast bacilli seen 08/16/18 03:40 Wound - Finger Gram Stain - Final 08/16/18 03:40 Wound - Finger Wound Culture - Preliminary Group A beta Strep 08/16/18 03:26 Wound - Finger Gram Stain - Final 08/16/18 03:26 Wound - Finger Wound Culture - Preliminary Group A beta Strep 08/16/18 02:15 Blood - Peripheral Aerobic Blood Culture - Preliminary No growth in 1 day 08/16/18 02:15 Blood - Peripheral Anaerobic Blood Culture - Preliminary No growth in 1 day 08/16/18 02:00 Blood - Peripheral Aerobic Blood Culture - Preliminary No growth in 1 day 08/16/18 02:00 Blood - Peripheral Anaerobic Blood Culture - Preliminary No growth in 1 day - Procedures s/p exploration, Incision and drainage, debridement of the extensor tendon, arthrotomy Metacarpophalangeal joint right middle finger on 08/16/[address] Alexander Assessment and Plan - Assessment (1) Septic arthritis of hand, left Code(s): M00.9 - Pyogenic arthritis, unspecified Status: Acute - Plan surrounding skin is cleaned with alcohol wipes packing pulled couple of cms dry dressing applied continue with limb elevation and range of motion exercises continue with iv antibiotics ID consultation for septic arthritis iv antibiotics hand surgery will follow.
[2018-08-18] MEDS: Clindamycin 900 mg/NS Premix 900 MG/50 ML PIGGYBACK IV.SIG SCH ×4 (02:30→18:19)
[2018-08-18] MEDS: oxyCODONE/Acetaminophen 10/325 Tablet PO PRN ×2 (04:09→16:29)
[2018-08-18] MEDS: Vancomycin Inj 1,500 MG in Sodium Chlor 0.9% Inj 500 ML IV.SIG SCH ×2 (04:12→13:11)
[2018-08-18] MEDS: Heparin - SQ 10,000 UNITS/ML Vial SQ SCH ×3 (04:13→21:27)
[2018-08-18] MEDS: Senna/Docusate Sodium 8.6/50 MG Tablet PO SCH ×3 (04:13→21:27)
[2018-08-18] MEDS: Famotidine 20 MG Tablet PO SCH ×3 (04:13→21:27)
--- NOTE | 2018-08-18 14:17 | P.PNID ---
Subjective Remarks: doing better reported to me that he had hives and throat swelling with last PCN use growing GAS in all 3 clx Antibiotics: vanco clinda Allergies/Adverse Reactions: Allergies penicillin G Allergy (Severe, Verified 08/16/18 00:03) Hives Objective Vital Signs 08/17/18 16:00 08/17/18 20:00 08/17/18 23:40 Temperature 98.1 F 98.7 F 98.4 F Pulse Rate 54 L 65 57 L Respiratory Rate 17 18 19 Blood Pressure 108/65 126/79 117/59 L Pulse Oximetry 99 98 96 08/18/18 00:00 08/18/18 03:35 08/18/18 08:00 Temperature 98.3 F Pulse Rate 59 L Respiratory Rate 16 18 18 Blood Pressure 122/63 Pulse Oximetry 98 08/18/18 12:00 Temperature 98.4 F Pulse Rate 68 Respiratory Rate 14 Blood Pressure 114/69 Pulse Oximetry 99 Intake & Output 08/17/18 08/18/18 08/18/18 18:59 06:59 18:59 Intake Total 580 / 580 1465 / 1465 565 / 565 Balance 580 / 580 1465 / 1465 565 / 565 Weight 81.2 kg Intake: IV 100 / 100 565 / 565 565 / 565 Cleocin 900 mg/NS Premix 900 mg 100 / 100 50 / 50 50 / 50 In 50 ml @ 100 mls/hr IV.SIG Q8H [facility] Rx#:[id number] Vancomycin Inj 1,500 MG In NS 515 / 515 515 / 515 Inj 500 ML @ 250 mls/hr IV.SIG Q12H [facility] Rx#:[id number] Oral 480 / 480 900 / 900 Other: # Voids 5 2 # Bowel Movements 1 08/16/18 02:11 Wound - Finger Gram Stain - Final 08/16/18 02:11 Wound - Finger Wound Culture - Preliminary Group A beta Strep 08/16/18 02:15 Blood - Peripheral Aerobic Blood Culture - Preliminary No growth in 2 days 08/16/18 02:15 Blood - Peripheral Anaerobic Blood Culture - Preliminary No growth in 2 days 08/16/18 02:00 Blood - Peripheral Aerobic Blood Culture - Preliminary No growth in 2 days 08/16/18 02:00 Blood - Peripheral Anaerobic Blood Culture - Preliminary No growth in 2 days 08/16/18 03:26 Wound - Finger Gram Stain - Final 08/16/18 03:26 Wound - Finger Wound Culture - Final Group A beta Strep 08/16/18 03:40 Wound - Finger Acid Fast Bacilli Smear - Final No acid fast bacilli seen 08/16/18 03:40 Wound - Finger Mycobacterial Culture - Pending 08/16/18 03:26 Wound - Finger Acid Fast Bacilli Smear - Final No acid fast bacilli seen 08/16/18 03:26 Wound - Finger Mycobacterial Culture - Pending 08/16/18 03:40 Wound - Finger Gram Stain - Final 08/16/18 03:40 Wound - Finger Wound Culture - Preliminary Group A beta Strep 08/16/18 03:40 Wound - Finger Fungal Smear - Final No fungal elements seen 08/16/18 03:40 Wound - Finger Fungal Culture - Pending 08/16/18 03:26 Wound - Finger Fungal Smear - Final No fungal elements seen 08/16/18 03:26 Wound - Finger Fungal Culture - Pending Lab - Hematology Results 08/17/18 09:21 WBC 11.7 H RBC 3.86 L Hgb 12.6 L Hct 37.4 L MCV 96.9 MCH 32.6 MCHC 33.7 RDW 12.9 Plt Count 210 MPV 8.4 Neut % (Auto) 63.4 Lymph % (Auto) 26.8 [place] % (Auto) 8.2 H Eos % (Auto) 1.1 Baso % (Auto) 0.5 Neut # (Auto) 7.4 Lymph # (Auto) 3.1 [place] # (Auto) 1.0 H Eos # (Auto) 0.1 Baso # (Auto) 0.1 WBC Differential . Differential Comment Auto diff final Lab - Chemistry Results 08/17/18 08/17/18 08/17/18 05:46 09:21 13:46 Sodium 143 141 Potassium 4.0 3.5 Chloride 108 H 107 Carbon Dioxide 28.2 29.0 Anion Gap 7 5 BUN 13 12 Creatinine 0.68 0.70 Estimated GFR Greater than 89 Greater than 89 Random Glucose 87 111 H Hemoglobin A1c 5.3 Calcium 8.3 L 7.9 L Phosphorus 3.0 Magnesium 2.0 Total Bilirubin 0.4 AST 8 L ALT 15 Alkaline Phosphatase 71 Total Protein 6.5 Albumin 3.0 L TSH 0.392 Free T4 1.60 H Imaging: ITS Impressions Hand X-Ray 08/16/18 01:59 CONCLUSION: No acute bony findings Physical Exam: GENERAL: NAD SKIN: Warm and dry. No rash HEAD: Atraumatic. Normocephalic. EYES: No scleral icterus. RESPIRATORY: No accessory muscle use. Breathing unlaboured MUSCULOSKELETAL: Extremities without clubbing, cyanosis, or edema. R hand with dressing in place fingers free of neurovascular deficit NEUROLOGICAL: Awake and alert. NOn focal PSYCHIATRIC: calm and cooperative Assessment and Plan - Plan R hand abscess following trauma including tenosynovits, metacarpophalangeal joint setic arthritis of right middle finger s/p exploration, Incision and drainage, debridement of the extensor tendon, arthrotomy on 08/16/[address] Alexander PCN allergy cont vanco, clindamycin I asked microlab to chk sensitivity for clindamycin of pt's GAS isolate If S to clindamycin will cont clindamycin as o/p, o/w will try Keflex as in-pt first dose to monitor for possible reaction dw pt
--- NOTE | 2018-08-18 15:15 | P.PN ---
Subjective Interval history: The patient was seen earlier today. In bed says he has pain in his arm at the surgical site however pain is improved. No fever chills overnight. No nausea or vomiting. Denies diarrhea or constipation. No palpitations. Physical Exam Vital signs: Vital Signs 08/17/18 16:00 08/17/18 20:00 08/17/18 23:40 Temperature 98.1 F 98.7 F 98.4 F Pulse Rate 54 L 65 57 L Respiratory Rate 17 18 19 Blood Pressure 108/65 126/79 117/59 L Pulse Oximetry 99 98 96 08/18/18 00:00 08/18/18 03:35 08/18/18 08:00 Temperature 98.3 F Pulse Rate 59 L Respiratory Rate 16 18 18 Blood Pressure 122/63 Pulse Oximetry 98 08/18/18 12:00 Temperature 98.4 F Pulse Rate 68 Respiratory Rate 14 Blood Pressure 114/69 Pulse Oximetry 99 Intake & Output 08/17/18 08/18/18 08/18/18 18:59 06:59 18:59 Intake Total 580 / 580 1465 / 1465 565 / 565 Balance 580 / 580 1465 / 1465 565 / 565 Weight 81.2 kg Intake: IV 100 / 100 565 / 565 565 / 565 Cleocin 900 mg/NS Premix 900 mg 100 / 100 50 / 50 50 / 50 In 50 ml @ 100 mls/hr IV.SIG Q8H [facility] Rx#:[id number] Vancomycin Inj 1,500 MG In NS 515 / 515 515 / 515 Inj 500 ML @ 250 mls/hr IV.SIG Q12H [facility] Rx#:[id number] Oral 480 / 480 900 / 900 Other: # Voids 5 2 # Bowel Movements 1 Narrative: GENERAL: Awake alert and oriented 3 talkative and cooperative SKIN: Warm and dry. Right hand is dressed c/d/i CARDIOVASCULAR: Regular rate and rhythm. S1-S2 no S3 or S4 RESPIRATORY: No accessory muscle use. Clear to auscultation. Breath sounds equal bilaterally. GASTROINTESTINAL: Abdomen soft, non-tender, nondistended. Hepatic and splenic margins not palpable. MUSCULOSKELETAL: Extremities without clubbing, cyanosis, or edema. No obvious deformities. Right hand is dressed and elevated NEUROLOGICAL: Awake and alert. No obvious cranial nerve deficits. Motor grossly within normal limits. Five out of 5 muscle strength in the arms and legs. Normal speech. Right hand is dressed and elevated PSYCHIATRIC: Appropriate mood and affect; insight and judgment normal. Results - Labs CBC & Chem 7: 08/17/18 09:21 08/17/18 13:46 Microbiology 08/16/18 03:40 Wound - Finger Gram Stain - Final 08/16/18 03:40 Wound - Finger Wound Culture - Preliminary Group A beta Strep S. aureus MRSA 08/16/18 03:40 Wound - Finger Fungal Smear - Final No fungal elements seen 08/16/18 03:40 Wound - Finger Acid Fast Bacilli Smear - Final No acid fast bacilli seen 08/16/18 02:11 Wound - Finger Gram Stain - Final 08/16/18 02:11 Wound - Finger Wound Culture - Preliminary Group A beta Strep Yeast species 08/16/18 02:15 Blood - Peripheral Aerobic Blood Culture - Preliminary No growth in 2 days 08/16/18 02:15 Blood - Peripheral Anaerobic Blood Culture - Preliminary No growth in 2 days 08/16/18 02:00 Blood - Peripheral Aerobic Blood Culture - Preliminary No growth in 2 days 08/16/18 02:00 Blood - Peripheral Anaerobic Blood Culture - Preliminary No growth in 2 days 08/16/18 03:26 Wound - Finger Gram Stain - Final 08/16/18 03:26 Wound - Finger Wound Culture - Final Group A beta Strep 08/16/18 03:26 Wound - Finger Acid Fast Bacilli Smear - Final No acid fast bacilli seen - Procedures s/p exploration, Incision and drainage, debridement of the extensor tendon, arthrotomy Metacarpophalangeal joint right middle finger on 08/16/[address] Alexander Assessment and Plan - Plan Right middle finger laceration/infection -Status post incision and drainage and septic arthritis of metacarpophalangeal joint right middle finger and partial laceration extensor digitorum communis tendon right middle finger status post exploration and incision and drainage and debridement of the extensor tendon and arthrotomy of the metacarpal phalangeal joint right middle finger SEEN BY DR DAWN Continue pain control as needed - s/p exploration, Incision and drainage, debridement of the extensor tendon, arthrotomy Metacarpophalangeal joint right middle finger on 08/16/[address] Alexander -Infectious disease specialist consulted for evaluation and recommendations of antibiotics. - f/up cultures Leukocytosis continue on clindamycin and vancomycin Check a.m. labs Tobacco abuse recommend smoking cessation Alcohol use recommend alcohol cessation Continue on DVT and GI prophylaxis Discussed with patient and RN and family Code Status: Full code Discussed Condition With: RN and patient and family Discharge Planning: Pending clearance by hand surgery and ID
[2018-08-19] MEDS: Vancomycin Inj 1,500 MG in Sodium Chlor 0.9% Inj 500 ML IV.SIG SCH ×2 (01:19→14:41)
[2018-08-19] MEDS: Clindamycin 900 mg/NS Premix 900 MG/50 ML PIGGYBACK IV.SIG SCH ×3 (04:08→18:15)
[2018-08-19] MEDS: oxyCODONE/Acetaminophen 10/325 Tablet PO PRN ×3 (04:16→18:15)
[2018-08-19] MEDS: Famotidine 20 MG Tablet PO SCH ×2 (09:55→22:19)
[2018-08-19] MEDS: Senna/Docusate Sodium 8.6/50 MG Tablet PO SCH ×2 (09:55→22:19)
[2018-08-19] MEDS: Heparin - SQ 10,000 UNITS/ML Vial SQ SCH ×2 (09:55→22:19)
--- NOTE | 2018-08-19 11:28 | P.PNOP ---
Physical Exam Vital signs: Vital Signs 08/18/18 12:00 08/18/18 16:00 08/18/18 20:00 Temperature 98.4 F 98.5 F 99.2 F Pulse Rate 68 59 L 61 Respiratory Rate 14 16 20 Blood Pressure 114/69 123/72 118/59 L Pulse Oximetry 99 99 95 08/19/18 00:00 08/19/18 04:00 08/19/18 08:00 Temperature 98.2 F 97.6 F 97.6 F Pulse Rate 54 L 64 Respiratory Rate 20 19 Blood Pressure 125/63 117/59 L Pulse Oximetry 99 99 Intake & Output 08/18/18 08/19/18 08/19/18 18:59 06:59 18:59 Intake Total 3280 / 3280 1095 / 1095 50 / 50 Output Total 800 / 800 380 / 380 Balance 2480 / 2480 715 / 715 50 / 50 Intake: IV 1080 / 1080 615 / 615 50 / 50 Cleocin 900 mg/NS Premix 900 mg 50 / 50 100 / 100 50 / 50 In 50 ml @ 100 mls/hr IV.SIG Q8H [facility] Rx#:[id number] Vancomycin Inj 1,500 MG In NS 1030 / 1030 515 / 515 Inj 500 ML @ 250 mls/hr IV.SIG Q12H [facility] Rx#:[id number] Oral 2200 / 2200 480 / 480 Output: Urine 800 / 800 380 / 380 Results - Labs CBC & Chem 7: 08/17/18 09:21 08/17/18 13:46 Microbiology 08/16/18 02:15 Blood - Peripheral Aerobic Blood Culture - Preliminary No growth in 3 days 08/16/18 02:15 Blood - Peripheral Anaerobic Blood Culture - Preliminary No growth in 3 days 08/16/18 02:00 Blood - Peripheral Aerobic Blood Culture - Preliminary No growth in 3 days 08/16/18 02:00 Blood - Peripheral Anaerobic Blood Culture - Preliminary No growth in 3 days 08/16/18 03:40 Wound - Finger Gram Stain - Final 08/16/18 03:40 Wound - Finger Wound Culture - Final Group A beta Strep S. aureus MRSA 08/16/18 03:40 Wound - Finger Fungal Smear - Final No fungal elements seen 08/16/18 03:40 Wound - Finger Acid Fast Bacilli Smear - Final No acid fast bacilli seen 08/16/18 02:11 Wound - Finger Gram Stain - Final 08/16/18 02:11 Wound - Finger Wound Culture - Preliminary Group A beta Strep Yeast species 08/16/18 03:26 Wound - Finger Gram Stain - Final 08/16/18 03:26 Wound - Finger Wound Culture - Final Group A beta Strep - Procedures s/p exploration, Incision and drainage, debridement of the extensor tendon, arthrotomy Metacarpophalangeal joint right middle finger on 08/16/[address] Alexander Assessment and Plan - Problem List (1) Septic arthritis of hand, left Code(s): M00.9 - Pyogenic arthritis, unspecified Status: Acute - Assessment and Plan 23yM s/p I&D right middle finger -Dressing changed -Ab per ID -Followup in office once discharged
[2018-08-19] MEDS ORDERED: Pharmacy Ordered Lab Info OTHER ONE (13:45)
--- NOTE | 2018-08-19 16:12 | P.PN ---
Subjective Interval history: In bed. Says still has some throbbing pain in his hand. Swelling improved. No fever chills overnight. No nausea vomiting. Physical Exam Vital signs: Vital Signs 08/18/18 20:00 08/19/18 00:00 08/19/18 04:00 Temperature 99.2 F 98.2 F 97.6 F Pulse Rate 61 54 L Respiratory Rate 20 20 Blood Pressure 118/59 L 125/63 Pulse Oximetry 95 99 08/19/18 08:00 08/19/18 12:00 Temperature 97.6 F 98.2 F Pulse Rate 64 59 L Respiratory Rate 19 19 Blood Pressure 117/59 L 120/73 Pulse Oximetry 99 99 Intake & Output 08/18/18 08/19/18 08/19/18 18:59 06:59 18:59 Intake Total 3280 / 3280 1095 / 1095 50 / 50 Output Total 800 / 800 380 / 380 Balance 2480 / 2480 715 / 715 50 / 50 Intake: IV 1080 / 1080 615 / 615 50 / 50 Cleocin 900 mg/NS Premix 900 mg 50 / 50 100 / 100 50 / 50 In 50 ml @ 100 mls/hr IV.SIG Q8H [facility] Rx#:[id number] Vancomycin Inj 1,500 MG In NS 1030 / 1030 515 / 515 Inj 500 ML @ 250 mls/hr IV.SIG Q12H [facility] Rx#:[id number] Oral 2200 / 2200 480 / 480 Output: Urine 800 / 800 380 / 380 Narrative: GENERAL: Awake alert and oriented 3 talkative and cooperative SKIN: Warm and dry. Right hand is dressed c/d/i CARDIOVASCULAR: Regular rate and rhythm. S1-S2 no S3 or S4 RESPIRATORY: No accessory muscle use. Clear to auscultation. Breath sounds equal bilaterally. GASTROINTESTINAL: Abdomen soft, non-tender, nondistended. Hepatic and splenic margins not palpable. MUSCULOSKELETAL: Extremities without clubbing, cyanosis, or edema. No obvious deformities. Right hand is dressed and elevated NEUROLOGICAL: Awake and alert. No obvious cranial nerve deficits. Motor grossly within normal limits. Five out of 5 muscle strength in the arms and legs. Normal speech. Right hand is dressed and elevated PSYCHIATRIC: Appropriate mood and affect; insight and judgment normal. Results - Labs CBC & Chem 7: 08/17/18 09:21 08/17/18 13:46 Laboratory Results - last 24 hr 08/19/18 13:40 Vancomycin Trough 9.4 Microbiology 08/16/18 02:11 Wound - Finger Gram Stain - Final 08/16/18 02:11 Wound - Finger Wound Culture - Final Group A beta Strep Madai albicans 08/16/18 02:15 Blood - Peripheral Aerobic Blood Culture - Preliminary No growth in 3 days 08/16/18 02:15 Blood - Peripheral Anaerobic Blood Culture - Preliminary No growth in 3 days 08/16/18 02:00 Blood - Peripheral Aerobic Blood Culture - Preliminary No growth in 3 days 08/16/18 02:00 Blood - Peripheral Anaerobic Blood Culture - Preliminary No growth in 3 days 08/16/18 03:40 Wound - Finger Gram Stain - Final 08/16/18 03:40 Wound - Finger Wound Culture - Final Group A beta Strep S. aureus MRSA 08/16/18 03:40 Wound - Finger Fungal Smear - Final No fungal elements seen 08/16/18 03:40 Wound - Finger Acid Fast Bacilli Smear - Final No acid fast bacilli seen - Procedures s/p exploration, Incision and drainage, debridement of the extensor tendon, arthrotomy Metacarpophalangeal joint right middle finger on 08/16/[address] Alexander Assessment and Plan - Plan Right middle finger laceration/infection -Status post incision and drainage and septic arthritis of metacarpophalangeal joint right middle finger and partial laceration extensor digitorum communis tendon right middle finger status post exploration and incision and drainage and debridement of the extensor tendon and arthrotomy of the metacarpal phalangeal joint right middle finger SEEN BY DR DAWN Continue pain control as needed - s/p exploration, Incision and drainage, debridement of the extensor tendon, arthrotomy Metacarpophalangeal joint right middle finger on 08/16/[address] Alexander -Infectious disease specialist consulted for evaluation and recommendations of antibiotics. With MRSA and GAS wound cultures. So far blood cx are negative. - f/up cultures Leukocytosis continue on clindamycin and vancomycin Check a.m. labs Tobacco abuse recommend smoking cessation Alcohol use recommend alcohol cessation Continue on DVT and GI prophylaxis Discussed with patient and RN and family Code Status: Full code Discussed Condition With: RN and patient and family Discharge Planning: Pending clearance by hand surgery and ID
--- NOTE | 2018-08-19 16:14 | P.DS ---
Date of admission: 08/16/18 02:57 Primary care physician: No Primary Care Physician Brief History from admission: Patient is a 23-year-old male who presented to the emergency department for evaluation of right hand pain and swelling after having his hand closed in a car door 2 days prior. Patient states that his hand was accidentally closed in a van door. He states that he had only mild discomfort initially. He did sustain a laceration. Has continued to worsen over last 24- 48 hours and become increasingly painful, red, swollen and has had now started draining pus through the wound. He states that he is been able to move his finger but not been able to move his feet fully now due to pain. Injury occurred over the right middle finger. He denies any numbness or tingling. Has some weakness due to pain. Had a tetanus shot over 5 years ago pain was severe. Denies any fever chills. It is worse with movement and palpable patient some relief with elevation. Patient is right hand dominant Patient underwent exploration and incision and drainage and debridement of the extensor tendon arthrotomy and metacarpal phalangeal joint of the right middle finger by Dr. GRIFFITHS We have been asked to admit. Family history is significant for hypertension in his father DS: Diagnosis - Discharge Diagnosis (1) Laceration of right middle finger with tendon involvement Status: Acute (2) No history of previous surgery Status: Acute (3) Septic arthritis of hand, left Status: Acute (4) Superficial injury of right middle finger with infection Status: Acute DS: Medications - Discharge Medications Prescriptions: clindamycin HCl [Cleocin HCl] 300 mg PO QID 21 Days #336 cap Lactobacillus acidoph-L.bulgar [Lactinex] 1 tab PO DAILY #30 tab DS: Summary Hospital Course: Right middle finger laceration/infection -Status post incision and drainage and septic arthritis of metacarpophalangeal joint right middle finger and partial laceration extensor digitorum communis tendon right middle finger status post exploration and incision and drainage and debridement of the extensor tendon and arthrotomy of the metacarpal phalangeal joint right middle finger SEEN BY DR GRIFFITHS Continue pain control as needed - s/p exploration, Incision and drainage, debridement of the extensor tendon, arthrotomy Metacarpophalangeal joint right middle finger on 08/16/[address] Alexander -Infectious disease specialist consulted for evaluation and recommendations of antibiotics. With MRSA and GAS wound cultures. So far blood cx are negative. Discussed with Dr. Pike infectious disease. Plan to discharge patient on clindamycin p.o. Leukocytosis continue on clindamycin and vancomycin Check a.m. labs Tobacco abuse recommend smoking cessation Alcohol use recommend alcohol cessation Patient improved. Cleared by consultants for discharge. Charge home in stable condition to follow-up with PCP and consultants as outpatient divided good discharge clindamycin by mouth per infectious disease recommendations. Has an appointment with hand surgeon on Monday. - Time Spent with Patient Total time spent providing and/or coordinating discharge services: Greater than 30 minutes - Quality: VTE Deep Vein Thrombosis/Pulmonary Embolism Present on Admission: No Exam Vital signs: Vital Signs 08/18/18 20:00 08/19/18 00:00 08/19/18 04:00 Temperature 99.2 F 98.2 F 97.6 F Pulse Rate 61 54 L Respiratory Rate 20 20 Blood Pressure 118/59 L 125/63 Pulse Oximetry 95 99 08/19/18 08:00 08/19/18 12:00 Temperature 97.6 F 98.2 F Pulse Rate 64 59 L Respiratory Rate 19 19 Blood Pressure 117/59 L 120/73 Pulse Oximetry 99 99 Intake & Output 08/18/18 08/19/18 08/19/18 18:59 06:59 18:59 Intake Total 3280 / 3280 1095 / 1095 50 / 50 Output Total 800 / 800 380 / 380 Balance 2480 / 2480 715 / 715 50 / 50 Intake: IV 1080 / 1080 615 / 615 50 / 50 Cleocin 900 mg/NS Premix 900 mg 50 / 50 100 / 100 50 / 50 In 50 ml @ 100 mls/hr IV.SIG Q8H [facility] Rx#:[id number] Vancomycin Inj 1,500 MG In NS 1030 / 1030 515 / 515 Inj 500 ML @ 250 mls/hr IV.SIG Q12H [facility] Rx#:[id number] Oral 2200 / 2200 480 / 480 Output: Urine 800 / 800 380 / 380 Narrative: GENERAL: Awake alert and oriented 3 appears to not acute distress. SKIN: Warm and dry. Right hand is dressed c/d/i CARDIOVASCULAR: Regular rate and rhythm. S1-S2 no S3 or S4 RESPIRATORY: No accessory muscle use. Clear to auscultation. Breath sounds equal bilaterally. GASTROINTESTINAL: Abdomen soft, non-tender, nondistended. Hepatic and splenic margins not palpable. MUSCULOSKELETAL: Extremities without clubbing, cyanosis, or edema. No obvious deformities. Right hand is dressed and elevated NEUROLOGICAL: Awake and alert. No obvious cranial nerve deficits. Motor grossly within normal limits. Five out of 5 muscle strength in the arms and legs. Normal speech. Right hand is dressed and elevated Results Procedures completed during hospitalization: s/p exploration, Incision and drainage, debridement of the extensor tendon, arthrotomy Metacarpophalangeal joint right middle finger on 08/16/[address] Alexander Completed studies during hospitalization: Pending at discharge 08/16/18 07:49 Surgical [PTH] Routine Labs on day of discharge: Labs from last 24 hours 08/19/18 13:40 Vancomycin Trough 9.4 Preliminary micro results at discharge 08/16/18 02:15 Aerobic Blood Culture - Preliminary Blood - Peripheral No growth in 3 days Anaerobic Blood Culture - Preliminary No growth in 3 days 08/16/18 02:00 Aerobic Blood Culture - Preliminary Blood - Peripheral No growth in 3 days Anaerobic Blood Culture - Preliminary No growth in 3 days - Impressions ITS Impressions Hand X-Ray 08/16/18 01:59 CONCLUSION: No acute bony findings Discharge Plan - Discharge Disposition Patient Disposition: Discharge Home - Discharge Condition Condition: Stable - Discharge Order Discharge Orders: Discharge Order (Routine); Ordered 08/20/18 Ordered By: Sana Shaw - Discharge Details Anticipated Discharge Date: 08/20/18 - Physicians Team Primary Care Provider: Primary Care Daphney Guthrie Attending Provider: Sana Shaw Other Providers: Fredo Griffiths MD ; Brooke Pike MD
[2018-08-19 17:06] VITALS: O2SAT 98
[2018-08-19 21:41] VITALS: RESP 18
[2018-08-20 01:11] VITALS: PULSE 55
[2018-08-20] MEDS: Vancomycin Inj 1,500 MG in Sodium Chlor 0.9% Inj 500 ML IV.SIG SCH (02:03)
[2018-08-20] MEDS: Clindamycin 900 mg/NS Premix 900 MG/50 ML PIGGYBACK IV.SIG SCH ×2 (02:04→11:02)
[2018-08-20] MEDS: oxyCODONE/Acetaminophen 10/325 Tablet PO PRN (05:40)
[2018-08-20 09:42] VITALS: BP 117/68; TEMP 97.3
--- NOTE | 2018-08-20 09:58 | P.PNADD ---
Addendum to Inpatient Note Additional information: Clx reviewed Grew GAS and MRSA both orgs S to CLindamycin WIll dc on PO clindamycin 300 mg q 6 hrs x 21 days sp 4 days of parenteral Tx post op Since pt has infection in the joint per op report longer tx will be advised (21 days) Pt will need to report side effects including diarrhea, abd pain, distention for concern of c.diff (that can developp during or after abx tx completed) Jose was dw over the phone with Dr Shaw
[2018-08-20] MEDS: Famotidine 20 MG Tablet PO SCH (11:08)
[2018-08-20] MEDS: Heparin - SQ 10,000 UNITS/ML Vial SQ SCH (11:08)
[2018-08-20] MEDS: Senna/Docusate Sodium 8.6/50 MG Tablet PO SCH (11:08)
== END 2018-08-20 13:33 | disposition home or self-care (01) ==
LOC: NEPD 23:59 → NEDA 08-16 02:57 → HCIS 08-16 05:42 → N07 08-16 21:51
PROVIDERS: ADMIT Hospitalist; ATTEND Hospitalist